=== PATIENT | female | born 1970 | race Caucasian/White ===

== ENCOUNTER 2018-12-16 08:30 | Day surgery (SDC) | payer SELFPAY ==
[~2018-12-16 08:30] MED LIST: Acetaminophen/HYDROcodone 325-5 MG Tab PO PRN; Bupivacaine 0.25%/EPINEPHrine 1:200,000 10 ML SDV INJECT ONE; Lactated Ringers 1,000 ML IV SCH; ceFAZolin 2 GM in Premix Bag 1 BAG IV ONE
--- NOTE | 2018-12-16 09:19 | PCM.PREANE ---
Preanesthetic Assessment - Anesthesia/Transfusion/Family Hx Anesthesia History: Prior Anesthesia Without Reaction Family History of Anesthesia Reaction: No Transfusion History: No Prior Transfusion(s) Intubation History: Unknown - Review of Systems General: No Symptoms Pulmonary: No Symptoms Cardiovascular: No Symptoms Gastrointestinal: No Symptoms Neurological: No Symptoms Other: Reports: None - Physical Assessment Height: 1.68 m Weight: 66.224 kg ASA Class: 1 Mental Status: Alert & Oriented x3 Airway Class: Mallampati = 2 Dentition: Reports: Normal Dentition Thyro-Mental Finger Breadths: 3 Mouth Opening Finger Breadths: 3 ROM/Head Extension: Full Lungs: Clear to Auscultation, Normal Respiratory Effort Cardiovascular: Regular Rate, Regular Rhythm - Lab Values: Laboratory Last Values Urine HCG, Qual NEGATIVE (NEGATIVE) 12/16/18 08:45 - Allergies Allergies/Adverse Reactions: Allergies Allergy/AdvReac Type Severity Reaction Status Date / Time No Known Allergies Allergy Verified 12/14/18 10:24 - Blood Blood Available: No - Anesthesia Plan Pre-Op Medication Ordered: None - Acknowledgements Anesthesia Type Planned: General Anesthesia Pt an Appropriate Candidate for the Planned Anesthesia: Yes Alternatives and Risks of Anesthesia Discussed w Pt/Guardian: Yes Pt/Guardian Understands and Agrees with Anesthesia Plan: Yes PreAnesthesia Questionnaire HEENT History: Reports: Other (See Below) Other HEENT History: wears glasses/contacts Genitourinary History: Reports: Renal Calculus - Past Surgical History Head Surgeries/Procedures: Reports: None Female Surgical History: Reports: Breast Implant () - SUBSTANCE USE Smoking Status *Q: Never Smoker Recreational Drug Use History: No - HOME MEDS Home Medications: Home Meds Biotin 10 mg PO DAILY 12/14/18 [History] Calcium Carbonate [Calcium] 600 mg PO DAILY 12/14/18 [History] Vitamin B Complex 1 cap PO DAILY 12/14/18 [History] - CURRENT (IN HOUSE) MEDS Current Meds: Current Medications Hydrocodone Bitart/Acetaminophen (Crozier 325-5 Mg) 1 tab PO Q4H PRN PRN Reason: Pain Lactated Ringer's (Ringers, Lactated) 1,000 mls @ 125 mls/hr IV ASDIRECTED VENICE Discontinued Medications Bupivacaine HCl/Epinephrine Bitart (Marcaine 0.25%/Epinephrine 1:200,000) 30 ml INJECT ONETIME ONE Stop: 12/16/18 08:01 Cefazolin Sodium/Dextrose 2 gm (/ Premix) 50 mls @ 100 mls/hr IV ONETIME ONE Stop: 12/16/18 08:29
[2018-12-16] MEDS ORDERED: fentaNYL 250 MCG/5 ML SDV ONE (09:43)
[2018-12-16] MEDS ORDERED: Glycopyrrolate 0.2 MG/ML SDV ONE ×2 (09:43→11:06)
[2018-12-16] MEDS ORDERED: Lidocaine 2% 5 ML SDV ONE (09:43)
[2018-12-16] MEDS ORDERED: Rocuronium 10 MG/ML 10 ML Syringe ONE (09:43)
[2018-12-16] MEDS ORDERED: Neostigmine Methylsulfate 1 MG/ML 5 ML Syringe ONE (09:43)
[2018-12-16] MEDS ORDERED: Ondansetron 4 MG/2 ML SDV ONE (09:43)
[2018-12-16] MEDS ORDERED: Propofol 200 MG/20 ML SDV ONE ×2 (09:43→09:50)
[2018-12-16] MEDS ORDERED: Midazolam 1 MG/ML 2 ML SDV ONE (09:43)
[2018-12-16] MEDS ORDERED: Gentamicin 40 MG/ML 2 ML Vial ONE (10:31)
[2018-12-16] MEDS ORDERED: EPINEPHrine 1 MG/ML SDV ONE (10:31)
[2018-12-16] MEDS ORDERED: ceFAZolin 1 GM Vial ONE ×3 (10:31→11:00)
[2018-12-16] MEDS ORDERED: Bupivacaine 25%/EPINEPHrine/PF 30 ML ONE (10:32)
[2018-12-16] MEDS ORDERED: Sodium Chloride 0.9% 20 ML ONE (11:00)
[2018-12-16] MEDS ORDERED: ePHEDrine 50 MG/ML SDV ONE (11:05)
[2018-12-16] MEDS ORDERED: Phenylephrine/Normal Saline 100 MCG/ML 10 ML Syringe ONE (11:21)
[2018-12-16] MEDS ORDERED: Naloxone 0.4 MG/ML Syringe IVPUSH PRN (12:08)
[2018-12-16] MEDS ORDERED: EPINEPHrine 1 MG/1 ML Amp IVPUSH PRN (12:08)
[2018-12-16] MEDS ORDERED: Atropine 1 MG/ML SDV IVPUSH PRN ×2 (12:08)
[2018-12-16] MEDS ORDERED: Albuterol 0.083% 2.5 MG/3 ML Neb Soln NEB PRN (12:08)
[2018-12-16] MEDS ORDERED: fentaNYL 100 MCG/2 ML SDV IVPUSH PRN (12:08)
[2018-12-16] MEDS ORDERED: 50% Dextrose in Water 50 ML Syringe IVPUSH PRN (12:08)
--- NOTE | 2018-12-16 13:44 | PCM.POSTAN ---
POST ANESTHESIA ASSESSMENT - MENTAL STATUS Mental Status: Alert, Oriented - VITAL SIGNS Pulse Rate: 80 SaO2: 96 Resp Rate: 12 - RESPIRATORY Respiratory Status: Respiratory Rate WNL, Airway Patent, O2 Saturation Stable - CARDIOVASCULAR CV Status: Pulse Rate WNL, Blood Pressure Stable - GASTROINTESTINAL GI Status: No Symptoms - POST OP HYDRATION Hydration Status: Adequate & Stable
[2018-12-16] MEDS ORDERED: Promethazine 25 MG/ML SDV ONE (14:07)
--- NOTE | 2018-12-23 16:01 | PCM.OPNOTE ---
- General Post-Op/Procedure Note Date of Surgery/Procedure: 12/16/18 Operative Procedure(s): bilateral breast implant exchagne and left capsulectomy Pre Op Diagnosis: bialteral breast implatns with left capsular contracture Post-Op Diagnosis: Same Anesthesia Technique: General ET Tube, Local Primary Surgeon: Raven Lao Production Controller: Deepa Partida Role of Production Controller: retraction prepping draping and closure assistance Complications: None Condition: Good Free Text/Narrative:: [id number]
--- NOTE | 2018-12-24 08:13 | OR ---
SURGEON: ABBY WIGGINS MD DATE OF PROCEDURE: 12/16/2018 PREOPERATIVE DIAGNOSES: Left breast capsular contracture and bilateral breast implant, desire for exchange. POSTOPERATIVE DIAGNOSES: Left breast capsular contracture and bilateral breast implant, desire for exchange. PROCEDURE: Bilateral breast implant exchange with left breast capsulectomy. EXCHANGE CONSULTANT: ROBBY Pandya INDICATIONS: Ms. Robin is a 48-year-old female, seen today in evaluation for bilateral breast implant exchange. She does have severe left breast capsule on the left. We discussed the risks and benefits of removal of capsule, as well as treatment of the lateral fold and then placement of new breast implant. She would like to proceed. Risks were including, but not limited to, bleeding, infection, damage to underlying or overlying structures, possible need for future interventions, and possible scarring. PROCEDURE IN DETAIL: After informed consent was obtained and placed on the chart, the patient was brought to the operating theater and laid in supine position. After adequate general anesthesia was obtained, the area was prepped and draped, a time-out was completed to confirm side and site. Attention was then paid to the left breast implants and the inframammary fold incision was used to access the submuscular pocket. Circumferential dissection was carried around the capsule itself, which was significantly thickened and adherent. Once adequately dissected circumferentially around this, which took a significant amount of time, meticulous hemostasis was obtained after removal of the implant and capsule. Once adequately removed, the area was scrubbed with Betadine cleansing solution, and meticulous hemostasis was obtained. The area was copiously irrigated and packed with epinephrine-soaked lap. Attention was then paid to the right side and a small inframammary fold incision was used to remove the previous implant. The pocket was appropriate. There were no signs of periprosthetic seroma or hematoma. No signs of significant capsular contracture on the side. Minimal release done at the superior pole for a new implant placement. Reference number [id number], [facility] breast implant silicone was then placed in the appropriate pocket. Starting on the right, after copious irrigation and prepping with triple antibiotic solution, the area was then prepped with Betadine scrub and then copiously irrigated until water ran clear. The implant was prepped in normal fashion using a triple antibiotic solution and then was placed using a Bagley funnel. Right breast implant, serial #[id number]. Attention was then paid to the left breast. The epinephrine-soaked laps were removed. Meticulous hemostasis was obtained and again the area was copiously irrigated with a triple antibiotic solution. The left breast implant was then opened and prepped in the normal fashion and allowed to sit in the triple antibiotic solution. 3-0 PDS sutures were then used to secure the lateral mammary fold, as well as the inframammary fold, due to the previous dissection. Once adequately secured, Bagley funnel was then used to place the 375 mL implant, serial #[id number], in the submuscular pocket. Once adequately placed, the patient was sat up and symmetry was appreciated. The patient was then laid back in the supine position. The incisions were closed using a 3-0 Monocryl Stratafix suture, running for the fascia, running for the deep dermis, and a running subcuticular as well. The patient tolerated this well. The wounds were dressed with Steri-Strips, fluffs, and a compression bra. FOLLOWUP INSTRUCTIONS: The patient will see us tomorrow in clinic, sooner with any problems, questions, or concerns. JERMAINE / MICHAELA /[id number]
== END 2018-12-16 16:00 | disposition home or self-care (01) ==
LOC: MW.SDS 08:30
PROVIDERS: ATTEND Plastic Surgery
DX: T85.44XA Capsular contracture of breast implant, initial encounter (principal)
CPT/HCPCS: 19328; 19340; 19371; 81025; A9270; J0171; J0690; J1580; J2001; J2250; J2370; J2405; J2550; J2704; J3010; J3490; J7120; 00402